=== PATIENT | female | born 1990 | race Two or more races ===

== ENCOUNTER 2024-08-05 13:42 | Emergency (ER) | payer MEDICAID, SELFPAY ==
[2024-08-05 13:43] VITALS: BMI 21.4
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
[2024-08-05 14:13] VITALS: BP 137/89; PULSE 74; RESP 18; TEMP 36.8; O2SAT 99
--- NOTE | 2024-08-05 14:25 | XR_ITS ---
Examination: Knee, left , 3 views Technique: Knee AP, lateral, oblique 3 views Date and time of exam: August 05, 2024 1447 hrs. Indications: Injury to the knee today, knee pain Findings: No fracture or dislocation Small knee effusion No opaque foreign body Impression: No fracture or dislocation
[2024-08-05] MEDS: HYDROcodone/APAP 5/325 TABLET 1 TAB PO (14:35)
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
== END 2024-08-05 15:54 | disposition home or self-care (01) ==
PROVIDERS: Emergency Provider Emergency Medicine; PCP Family Medicine
DX: S83.92XA Sprain of unspecified site of left knee, initial encounter (principal); Y04.8XXA Assault by other bodily force, initial encounter
CPT/HCPCS: 73562; 99283; A9270

== ENCOUNTER 2024-08-14 12:55 | Emergency (ER) | payer MEDICAID, SELFPAY ==
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
[2024-08-14 12:57] VITALS: BMI 22.1
[2024-08-14 13:24] VITALS: BP 148/67; PULSE 88; RESP 20; TEMP 36.8; O2SAT 100
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
[2024-08-14] MEDS: KETOROLAC INJ 30 MG/ML VIAL IM (14:04)
[2024-08-14 15:12] VITALS: BP 151/78; PULSE 72; RESP 18; TEMP 36.7; O2SAT 99
--- NOTE | 2024-08-14 17:58 | PD.EDRME ---
Rapid Medical Screening Exam RME Arrival date/time: 08/14/24 12:55 34-year-old female presents emergency department complains of left knee swelling and left lower extremity pain and swelling Chief Complaint: Extremity Injury, Lower Time Seen by Provider: 08/14/24 13:07 Vital signs: Vital Signs Temperature 98.2 F 08/14/24 13:24 Pulse Rate 88 08/14/24 13:24 Respiratory Rate 20 08/14/24 13:24 Blood Pressure 148/67 H 08/14/24 13:24 Pulse Oximetry (%) 100 08/14/24 13:24 Oxygen Delivery Method Room Air 08/14/24 13:24
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
[2024-08-14 19:03] VITALS: BP 122/77; PULSE 78
== END 2024-08-14 19:07 | disposition home or self-care (01) ==
PROVIDERS: Emergency Provider Emergency Medicine; PCP Family Medicine
DX: S83.92XA Sprain of unspecified site of left knee, initial encounter (principal); S83.282A Other tear of lateral meniscus, current injury, left knee, initial encounter; S83.242A Other tear of medial meniscus, current injury, left knee, initial encounter; S83.512A Sprain of anterior cruciate ligament of left knee, initial encounter; X58.XXXA Exposure to other specified factors, initial encounter
CPT/HCPCS: 73721; 93971; 96372; 99284; J1885

== ENCOUNTER → 2025-04-23 | Outpatient (CLI) | payer MEDICAID, SELFPAY ==
--- NOTE | 2025-04-23 10:09 | XR_ITS ---
Examination: OB Transvaginal ultrasound of the pelvis, complete Technique: Transvaginal sonographic images pelvis performed using rojas scale imaging Exam date and time: July 23, 2025, 11:00 AM INDICATIONS: History subchorionic hemorrhages and history ectopic , unknown size and dates with this FINDINGS: Uterus 10.6 cm CRL 1.0 cm corresponds to 7 week 0 day gestational age Cardiac motion 130 bpm Right ovary 3.5 cm arterial flow 18 mm follicular cyst Left ovary 2.7 cm arterial flow IMPRESSION: Viable intrauterine gestation 7 weeks 0 days No subchorionic hemorrhage
== END | disposition home or self-care (01) ==
PROVIDERS: PCP Obstetrics & Gynecology; Referring Provider Obstetrics & Gynecology; Visit Provider Obstetrics & Gynecology
DX: O09.A1 Supervision of pregnancy with history of molar pregnancy, first trimester (principal); Z3A.01 Less than 8 weeks gestation of pregnancy
CPT/HCPCS: 76817